=== PATIENT | female | born 1995 | race Caucasian/White ===

== ENCOUNTER 2019-05-02 21:46 | Outpatient (CLI) | payer BC ==
[2019-05-02 22:18] LABS: APPEARANCE,URINE CLEAR; BILIRUBIN,URINE NEGATIVE (NEGATIVE); COLOR,URINE YELLOW; GLUCOSE, URINE NEGATIVE (NEGATIVE); KETONES,URINE NEGATIVE (NEGATIVE); LEUKOCYTE ESTERASE,URINE NEGATIVE (NEGATIVE); NITRITE,URINE NEGATIVE (NEGATIVE); PROTEIN,URINE NEGATIVE (NEGATIVE); URINE SPECIFIC GRAVITY 1.024; UROBILINOGEN,URINE NEGATIVE mg/dL (<2.0)
[2019-05-02 22:40] LABS: URINE AMPHETAMINES SCREEN NEGATIVE; URINE BARBITURATES SCREEN NEGATIVE; URINE BENZODIAZEPINES SCREEN NEGATIVE; URINE COCAINE SCREEN NEGATIVE; URINE MARIJUANA (THC) SCREEN NEGATIVE; URINE METHADONE SCREEN NEGATIVE; URINE PHENCYCLIDINE SCREEN NEGATIVE
== END 2019-05-02 22:56 | disposition home or self-care (01) ==
LOC: LC 21:46
PROVIDERS: ATTEND Obstetrics & Gynecology Gynecology
PROC: 4A1HXCZ Monitoring of Products of Conception, Cardiac Rate, External Approach (ICD-10-PCS; principal; 2019-05-02)
DX: O36.8130 Decreased fetal movements, third trimester, not applicable or unspecified (principal); Z3A.30 30 weeks gestation of pregnancy
CPT/HCPCS: 80307; 81001

== ENCOUNTER 2019-06-24 21:57 | Outpatient (CLI) | payer BC ==
[2019-06-24 22:38] LABS: APPEARANCE,URINE SLIGHTLY-CLOUDY; BILIRUBIN,URINE NEGATIVE (NEGATIVE); COLOR,URINE AMBER; GLUCOSE, URINE NEGATIVE (NEGATIVE); KETONES,URINE 80 mg/dL (NEGATIVE); LEUKOCYTE ESTERASE,URINE SMALL (NEGATIVE); NITRITE,URINE NEGATIVE (NEGATIVE); PROTEIN,URINE 100 mg/dL (NEGATIVE); URINE SPECIFIC GRAVITY 1.028
[2019-06-24 22:58] LABS: URINE AMPHETAMINES SCREEN NEGATIVE; URINE BARBITURATES SCREEN NEGATIVE; URINE BENZODIAZEPINES SCREEN NEGATIVE; URINE COCAINE SCREEN NEGATIVE; URINE MARIJUANA (THC) SCREEN NEGATIVE; URINE METHADONE SCREEN NEGATIVE
[2019-06-24 23:07] LABS: URINE PHENCYCLIDINE SCREEN NEGATIVE
--- NOTE | 2019-06-25 00:24 | Non Stress Test Report ---
Non Stress Test Datetime Report Generated by CPN: 06/25/2019 00:24 DEMOGRAPHIC EGA NST: 38.0 INDICATION Indication for Study (NST) Other: gestational age >32 weeks. contractions VITAL SIGNS Temperature - NST: 98.0 Pulse - NST: 72 RESP - NST: 16 NBPSYS NST: 116 NBPDIA NST: 60 MONITORING Monitor Explained: Monitor Explained; Test Explained; Patient Verbalized Understanding Time on Monitor: 06/24/2019 22:11 Time off Monitor: 06/24/2019 23:50 NST Duration: 99 NST INTERVENTIONS NST Interventions: PO Hydration Physician Notified NST: Dr. Arenas BABY A: [id number] BABY A Movement : Present Contraction Frequency : irergular FHR Baseline : 125 Accelerations : 15X15 Decelerations : None Variability : Moderate 6-25bpm NST Review: Meets Criteria for Reactive NST NST Review and Verified By : GRISELDA Caldwell NST Results: Reactive NST REPORT Report Trigger: Send Report
== END 2019-06-25 00:16 | disposition home or self-care (01) ==
LOC: LC 21:57
PROVIDERS: ATTEND Obstetrics & Gynecology
PROC: 4A1HXCZ Monitoring of Products of Conception, Cardiac Rate, External Approach (ICD-10-PCS; principal; 2019-06-24)
DX: O99.283 Endocrine, nutritional and metabolic diseases complicating pregnancy, third trimester (principal); E86.0 Dehydration; Z3A.38 38 weeks gestation of pregnancy
CPT/HCPCS: 59025; 80307; 81005

== ENCOUNTER 2019-06-25 10:29 | Outpatient (CLI) | payer BC ==
[2019-06-25 11:08] LABS: APPEARANCE,URINE SLIGHTLY-CLOUDY; BILIRUBIN,URINE NEGATIVE (NEGATIVE); COLOR,URINE YELLOW; GLUCOSE, URINE NEGATIVE (NEGATIVE); KETONES,URINE 20 mg/dL (NEGATIVE); LEUKOCYTE ESTERASE,URINE TRACE (NEGATIVE); NITRITE,URINE NEGATIVE (NEGATIVE); PROTEIN,URINE 30 mg/dL (NEGATIVE); URINE SPECIFIC GRAVITY 1.011; UROBILINOGEN,URINE NEGATIVE mg/dL (<2.0)
[2019-06-25 11:24] LABS: URINE AMPHETAMINES SCREEN NEGATIVE; URINE BARBITURATES SCREEN NEGATIVE; URINE BENZODIAZEPINES SCREEN NEGATIVE; URINE COCAINE SCREEN NEGATIVE; URINE MARIJUANA (THC) SCREEN NEGATIVE; URINE METHADONE SCREEN NEGATIVE; URINE PHENCYCLIDINE SCREEN NEGATIVE
--- NOTE | 2019-06-25 11:28 | Non Stress Test Report ---
Non Stress Test Datetime Report Generated by CPN: 06/25/2019 11:28 DEMOGRAPHIC EGA NST: 38.1 INDICATION Indication for Study (NST) Other: labor check MONITORING Monitor Explained: Monitor Explained; Test Explained; Patient Verbalized Understanding Time on Monitor: 06/25/2019 10:45 Time off Monitor: 06/25/2019 11:20 NST Duration: 35 NST INTERVENTIONS NST Interventions: PO Hydration Physician Notified NST: A Benz CNM BABY A: [id number] BABY A Movement : Present Contraction Frequency : rare FHR Baseline : 125 Accelerations : 15X15 Decelerations : None Variability : Moderate 6-25bpm NST Review: Meets Criteria for Reactive NST NST Review and Verified By : Latonia Quinterosavayeyo RN NST Results: Reactive NST REPORT Report Trigger: Send Report
== END 2019-06-25 11:49 | disposition home or self-care (01) ==
LOC: LC 10:29
PROVIDERS: ATTEND Obstetrics & Gynecology
PROC: 4A1HXCZ Monitoring of Products of Conception, Cardiac Rate, External Approach (ICD-10-PCS; principal; 2019-06-25)
DX: O47.1 False labor at or after 37 completed weeks of gestation (principal); O99.283 Endocrine, nutritional and metabolic diseases complicating pregnancy, third trimester; E86.0 Dehydration; Z3A.38 38 weeks gestation of pregnancy
CPT/HCPCS: 59025; 80307; 81005; 84112

== ENCOUNTER 2019-06-27 15:37 | Inpatient (IN) | payer BC ==
[2019-06-27] MEDS ORDERED: RINGERS SOLUTION,LACTATED 1,000 ML IV PRN (17:47)
[2019-06-27] MEDS ORDERED: PENICILLIN G POTASSIUM 5,000,000 UNIT in DEXTROSE 5%-WATER 100 ML IV ONE (17:59)
[2019-06-27] MEDS ORDERED: LIDOCAINE 1% INJ-PF (10 MG/ML) 30 ML SDV ONE (18:06)
[2019-06-27] MEDS ORDERED: OXYTOCIN/NORMAL SALINE 20 UNIT/1,000 ML RTUINJ ONE (18:06)
[2019-06-27] MEDS ORDERED: MISOPROSTOL 0.2 MG TABLET ONE (18:06)
[2019-06-27] MEDS ORDERED: OXYTOCIN 10 UNIT/ML VIAL ONE (18:06)
[2019-06-27] MEDS ORDERED: PENICILLIN G-K 5 MILLION UNIT VIAL ONE ×2 (18:07→23:03)
[2019-06-27 18:29] LABS: ABSOLUTE BASOPHILS # (AUTO) 0.1 10^3/uL (0.0-0.2); ABSOLUTE EOSINOPHILS # (AUTO) 0.2 10^3/uL (0.0-0.6); ABSOLUTE LYMPHOCYTES (AUTO) 2.2 10^3/uL (0.5-4.7); ABSOLUTE MONOCYTES (AUTO) 0.9 10^3/uL (0.1-1.4); BASOPHILS % (AUTO) 0.5 % (0-2); EOSINOPHILS % (AUTO) 1.3 % (0-6); HEMATOCRIT 34.9 % (36.0-47.0); HEMOGLOBIN 11.6 g/dL (12.0-15.5); LYMPHOCYTES % (AUTO) 15.6 % (13-45); MEAN CORPUSCULAR HEMOGLOBIN 27.7 pg (27.0-33.4); MEAN CORPUSCULAR HGB CONC 33.1 g/dL (32.0-36.0); MEAN CORPUSCULAR VOLUME 84 fl (80-97); MONOCYTES % (AUTO) 6.2 % (3-13); PLATELET COUNT 416 10^3/uL (150-450); RED BLOOD COUNT 4.17 10^6/uL (3.72-5.28); RED CELL DISTRIBUTION WIDTH 13.9 % (11.5-14.0); SEGMENTED NEUTROPHILS % (AUTO) 76.4 % (42-78); TOTAL CELLS COUNTED % (AUTO) 100 %; WHITE BLOOD COUNT 14.4 10^3/uL (4.0-10.5)
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
[2019-06-27 20:35] LABS: APPEARANCE,URINE SLIGHTLY-CLOUDY; BILIRUBIN,URINE NEGATIVE (NEGATIVE); COLOR,URINE YELLOW; GLUCOSE, URINE NEGATIVE (NEGATIVE); KETONES,URINE 20 mg/dL (NEGATIVE); LEUKOCYTE ESTERASE,URINE TRACE (NEGATIVE); NITRITE,URINE NEGATIVE (NEGATIVE); PROTEIN,URINE 30 mg/dL (NEGATIVE); URINE SPECIFIC GRAVITY 1.023; UROBILINOGEN,URINE NEGATIVE mg/dL (<2.0)
[2019-06-27 20:57] LABS: URINE AMPHETAMINES SCREEN NEGATIVE; URINE BARBITURATES SCREEN NEGATIVE; URINE BENZODIAZEPINES SCREEN NEGATIVE; URINE COCAINE SCREEN NEGATIVE; URINE MARIJUANA (THC) SCREEN NEGATIVE; URINE METHADONE SCREEN NEGATIVE; URINE PHENCYCLIDINE SCREEN NEGATIVE
[2019-06-27] MEDS: PENICILLIN G POTASSIUM 2,500,000 UNIT in DEXTROSE 5%-WATER 50 ML IV SCH (23:05)
[2019-06-28] MEDS ORDERED: EPHEDRINE SULFATE INJ 50 MG/1 ML AMPULE ONE (02:54)
[2019-06-28] MEDS ORDERED: FENTANYL/BUPIVACAINE/NS/PF 300 MCG/150 ML RTUINJ EPI ONE (02:55)
[2019-06-28] MEDS ORDERED: BUPIVACAINE HCL 0.25 % INJ/PF (2.5 MG/1 ML) 30 ML VIAL ONE (02:55)
[2019-06-28] MEDS ORDERED: PENICILLIN G-K 5 MILLION UNIT VIAL ONE ×3 (04:07→12:04)
[2019-06-28] MEDS: PENICILLIN G POTASSIUM 2,500,000 UNIT in DEXTROSE 5%-WATER 50 ML IV SCH ×3 (04:10→14:02)
--- NOTE | 2019-06-28 08:30 | Warning Signs in Babies ---
VOD Warning Signs Datetime Report Generated by [facility]: 06/28/2019 08:30 VOD#608 -Warning Signs in Babies: Viewed with Parent(s)/Family (06/28/2019 08:29:John Rodriguez RN)
[2019-06-28] MEDS ORDERED: SERTRALINE HCL 50 MG TABLET PO SCH ×2 (10:00→22:00)
[2019-06-28] MEDS ORDERED: PANTOPRAZOLE SODIUM 20 MG TABLET.DR PO SCH (10:00)
[2019-06-28] MEDS ORDERED: DIBUCAINE 1% OINTMENT 28 GM TP PRN (13:13)
[2019-06-28] MEDS ORDERED: DIPH/PERTUSS(ACELL)/TETANUS VAC/PF 0.5 ML SYR (>=10YO) IM PRN (13:13)
[2019-06-28] MEDS ORDERED: BENZOCAINE/MENTHOL AEROSOL SPRAY 56 ML TOP PRN (13:13)
[2019-06-28] MEDS ORDERED: MEASLES,MUMPS&RUBELLA VACC/PF 0.5 ML VIAL SUBCUT PRN (13:13)
[2019-06-28] MEDS ORDERED: OXYTOCIN/NORMAL SALINE 20 UNIT/1,000 ML RTUINJ IV PRN (13:13)
[2019-06-28] MEDS ORDERED: ZOLPIDEM TARTRATE 5 MG TABLET PO PRN (13:13)
[2019-06-28] MEDS ORDERED: IBUPROFEN 800 MG TABLET ONE (13:33)
[2019-06-28] MEDS: IBUPROFEN 800 MG TABLET PO SCH ×2 (13:39→22:21)
--- NOTE | 2019-06-28 14:43 | Delivery Summary ---
Del Sum A-C Datetime Report Generated by CPN: 06/28/2019 14:42 DELIVERY PERSONNEL DELIVERY PERSONNEL: [id number] Delivery Doctor:: Latoya Waggoner CNM Labor and Delivery Nurse:: John Rodriguez RNtechnical marketing consultant Nurse:: HELENA Lloyd Nursery Nurse:: Jenna Bird RN Nursery Nurse:: Aniya Savage/HORTICULTURE WORKER: Aurora Swain, ST MATERNAL INFORMATION Delivery Anesthesia: Local Medications During Delivery: 1% lidocane Medications After Delivery: Pitocin Bolus-Please Comment Meds After Delivery Comment: Pitocin 20 units in 1000 NS Delivery QBL: 800 Delivery QBL Comment: 800 Maternal Complications: Premature Rupture of Membranes Provider Comments: SVDVF over intact perineum, delivered direct OA with shoulders directly OA, Lt shoulder delivered first. Partial Posterior nuchal cord unable to reduce, delivered through. Infant vigorous, to mothers abd. Cord clamped x2 cut per pt mother. Placenta partially with some bleeding, was delivered spontaneously via conrad. Mother and stable. LABOR SUMMARY EDC: 07/08/2019 00:00 No. Babies in Womb: 1 Attempted: No Labor Anesthesia: Epidural LABOR INFORMATION Reason for Induction: Premature Rupture of Membranes Onset of Labor: 06/28/2019 08:15 Complete Dilatation: 06/28/2019 12:07 Oxytocin: Induction Group B Beta Strep: negative Antibiotics # of Doses: 4 Antibiotics Time of Last Dose: 819 Name of Antibiotic Given: PCN Steroids Given: None Reason Steroids Not Administered: Not Applicable MEMBRANES Membranes Rupture Method: Spontaneous Rupture of Membranes: 06/27/2019 03:00 Length of Rupture (hr): 33.67 Amniotic Fluid Color: Clear Amniotic Fluid Amount: Small Amniotic Fluid Odor: Normal STAGES OF LABOR Stage 1 hr: 3 Stage 1 min: 52 Stage 2 hr: 0 Stage 2 min: 33 Stage 3 hr: 0 Stage 3 min: 14 Total Time in Labor hr: 4 Total Time in Labor min: 39 VAGINAL DELIVERY Episiotomy: None Laceration #1: Vaginal Laceration Extension #1: First Degree Other Laceration: 1* Rt labial laceration Laceration Repair: Yes Laceration Repair Note: repair with 3.0 chromic under epidural anesthesia Sponge Count Correct: Yes Sharps Count Correct: Yes CSECTION DELIVERY Primary Indication: N/A Secondary Indication: N/A CSection Incidence: N/A Labor: N/A Elective: N/A CSection Incision: N/A BABY A INFORMATION Delivery Date/Time: 06/28/2019 12:40 Method of Delivery: Vaginal Born in Route : No : N/A Forceps: N/A Vacuum Extraction: N/A Shoulder Dystocia : No PRESENTATION/POSITION BABY A Presentation: Cephalic Cephalic Presentation: Vertex Vertex Position: OA Breech Presentation: N/A PLACENTA INFORMATION BABY A Placenta Delivery Time : 06/28/2019 12:54 Placenta Method of Delivery: Spontaneous Placenta Status: Delivered SCORES BABY A Heart Rate 1 min: >100 bpm Resp Effort 1 min: Good Cry Reflex Irritability 1 min: Cough or Sneeze or Pulls Away Muscle Tone 1 min: Active Motion Color 1 min: Blue/Pale SCORE 1 MIN: 8 Heart Rate 5 min: >100 bpm Resp Effort 5 min: Good Cry Reflex Irritability 5 min: Cough or Sneeze or Pulls Away Muscle Tone 5 min: Active Motion Color 5 min: Body [place], Extremities Blue SCORE 5 MIN: 9 INFANT INFORMATION BABY A Gestational Age at Delivery: 38.4 Gestational Status: Early Term- 37- 38.6 Weeks Infant Outcome : Liveborn Condition : Stable Sex: Female IDENTIFICATION BABY A Verification Date/Time: 06/28/2019 13:18 ID Band Number: [id number] Mother's Name Verified: Yes Infant RN Verifying Infant: TMartin,RN Additional Verifying Personnel: DSprouse,US WEIGHT/LENGTH BABY A Infant Birthweight (gm): 3056 Weight (lb): 6 Weight (oz): 12 Infant Length (in): 23.00 Infant Length (cm): 58.42 CORD INFORMATION BABY A No. Cord Vessels: 3 Nuchal Cord : Around Neck x1, Loose Cord Blood Taken: Yes-For Eval (Mom's Blood Type - or O+) Infant Suction: Mouth ASSESSMENT BABY A Skin to Skin: Yes SIGNATURES Assignment: Nitza Arenas MD Signature: with User ID: [email or web address] : with User ID: [email or web address] : I was personally available for consultation and serving as supervising physician for the MLP.
[2019-06-28 16:09] LABS: ABSOLUTE LYMPHOCYTES (AUTO) 1.8 10^3/uL (0.5-4.7); ABSOLUTE MONOCYTES (AUTO) 1.3 10^3/uL (0.1-1.4); ABSOLUTE NEUT (AUTO) 15.7 10^3/uL (1.7-8.2); BASOPHILS % (AUTO) 0.3 % (0-2); EOSINOPHILS % (AUTO) 0.3 % (0-6); HEMATOCRIT 26.7 % (36.0-47.0); LYMPHOCYTES % (AUTO) 9.8 % (13-45); MEAN CORPUSCULAR HEMOGLOBIN 28.1 pg (27.0-33.4); MEAN CORPUSCULAR HGB CONC 33.9 g/dL (32.0-36.0); MEAN CORPUSCULAR VOLUME 83 fl (80-97); MONOCYTES % (AUTO) 6.7 % (3-13); PLATELET COUNT 353 10^3/uL (150-450); RED BLOOD COUNT 3.22 10^6/uL (3.72-5.28); RED CELL DISTRIBUTION WIDTH 13.8 % (11.5-14.0); SEGMENTED NEUTROPHILS % (AUTO) 82.9 % (42-78); TOTAL CELLS COUNTED % (AUTO) 100 %; WHITE BLOOD COUNT 18.9 10^3/uL (4.0-10.5)
[2019-06-28 16:14] LABS: HEMOGLOBIN 9.1 g/dL (12.0-15.5)
[2019-06-28] MEDS: DOCUSATE SODIUM 100 MG CAPSULE PO SCH (18:45)
[2019-06-28] MEDS: FERROUS SULFATE 325 MG TABLET PO SCH (18:45)
[2019-06-28] MEDS ORDERED: ACETAMINOPHEN WITH CODEINE #3 TABLET PO PRN (21:50)
[2019-06-29] MEDS: IBUPROFEN 800 MG TABLET PO SCH ×3 (06:30→22:31)
[2019-06-29] MEDS: ACETAMINOPHEN WITH CODEINE #3 TABLET PO PRN ×2 (06:37→15:08)
[2019-06-29 08:01] LABS: HEMATOCRIT 25.2 % (36.0-47.0); HEMOGLOBIN 8.4 g/dL (12.0-15.5); MEAN CORPUSCULAR HEMOGLOBIN 27.7 pg (27.0-33.4); MEAN CORPUSCULAR HGB CONC 33.4 g/dL (32.0-36.0); MEAN CORPUSCULAR VOLUME 83 fl (80-97); PLATELET COUNT 316 10^3/uL (150-450); RED BLOOD COUNT 3.04 10^6/uL (3.72-5.28); RED CELL DISTRIBUTION WIDTH 13.6 % (11.5-14.0)
[2019-06-29] MEDS ORDERED: INFLUENZA QUAD (6MOS+) 2019-20 VAC 0.5 ML SYR IM ONE (10:26)
[2019-06-29] MEDS: FERROUS SULFATE 325 MG TABLET PO SCH ×2 (10:27→17:34)
[2019-06-29] MEDS: DOCUSATE SODIUM 100 MG CAPSULE PO SCH ×2 (10:27→17:34)
[2019-06-29] MEDS: SENNOSIDES/DOCUSATE 8.6-50 MG 1 EACH TABLET PO SCH (10:27)
[2019-06-29] MEDS: SERTRALINE HCL 50 MG TABLET PO SCH (10:27)
[2019-06-29] MEDS: PRENATAL VITAMIN W DHA CAPSULE PO SCH (10:27)
--- NOTE | 2019-06-29 10:48 | PDOC PROGRESS REPORT ---
Subjective-OB Progress Note for:: 06/29/19 Subjective: Pt doing well, no concerns. She reports light bleeding, regular diet and voiding without difficulty. Physical Exam (OB) Vital Signs: Temp Pulse Resp BP Pulse Ox 97.3 F 64 14 102/59 L 100 06/29/19 08:11 06/29/19 08:11 06/29/19 08:11 06/29/19 08:11 06/29/19 08:11 Intake & Output 06/28/19 06/29/19 06/30/19 06:59 06:59 06:59 Weight 63.3 kg - PIH/Pre-Eclampsia Headache: Absent Epigastric Pain: No Visual Changes: No - Lochia Lochia Amount: Scant < 10 ml Lochia Color: Rubra/Red - Abdomen Description: Soft Hernia Present: No Fundal Description: Firm, Midline Fundal Height: u/u - u/2 Objective-Diagnostic Laboratory: 06/29/19 07:25 06/28/19 06/29/19 15:50 07:25 WBC 18.9 H 16.0 H RBC 3.22 L 3.04 L Hgb 9.1 L D 8.4 L Hct 26.7 L 25.2 L MCV 83 83 MCH 28.1 27.7 MCHC 33.9 33.4 RDW 13.8 13.6 Plt Count 353 316 Seg Neutrophils % 82.9 H Assessment and Plan(PN) - Assessment and Plan (1) Anemia due to acute blood loss Is this a current diagnosis for this admission?: Yes (2) Laceration, obstetrical, first degree Is this a current diagnosis for this admission?: Yes (3) hemorrhage Qualifiers: hemorrhage type: third-stage Qualified Code(s): O72.0 - Third- stage hemorrhage Is this a current diagnosis for this admission?: Yes (4) Prolonged rupture of membranes, greater than 24 hours, delivered Is this a current diagnosis for this admission?: Yes (5) (spontaneous vaginal delivery) Is this a current diagnosis for this admission?: Yes - Time Spent with Patient Time with patient: Less than 15 minutes Medications reviewed and adjusted accordingly: Yes - Disposition Anticipated Discharge: Home Within: within 24 hours
[2019-06-30] MEDS: IBUPROFEN 800 MG TABLET PO SCH (06:04)
[2019-06-30] MEDS: ACETAMINOPHEN WITH CODEINE #3 TABLET PO PRN (06:06)
[2019-06-30 08:04] VITALS: BP 105/77
[2019-06-30] MEDS: FERROUS SULFATE 325 MG TABLET PO SCH (09:28)
[2019-06-30] MEDS: DOCUSATE SODIUM 100 MG CAPSULE PO SCH (09:28)
[2019-06-30] MEDS: SENNOSIDES/DOCUSATE 8.6-50 MG 1 EACH TABLET PO SCH (09:28)
[2019-06-30] MEDS: PRENATAL VITAMIN W DHA CAPSULE PO SCH (09:28)
[2019-06-30] MEDS: SERTRALINE HCL 50 MG TABLET PO SCH (09:28)
--- NOTE | 2019-06-30 10:35 | PDOC DISCHARGE SUMMARY ---
Impression - Admit/DC Date/PCP Admission Date/Primary Care Provider: 06/27/19 17:45 VIDA NAVAS MD Discharge Date: 06/30/19 - Discharge Diagnosis (1) Anemia due to acute blood loss Is this a current diagnosis for this admission?: Yes (2) Laceration, obstetrical, first degree Is this a current diagnosis for this admission?: Yes (3) hemorrhage Is this a current diagnosis for this admission?: Yes (4) Prolonged rupture of membranes, greater than 24 hours, delivered Is this a current diagnosis for this admission?: Yes (5) (spontaneous vaginal delivery) Is this a current diagnosis for this admission?: Yes - Additional Information Resuscitation Status: Full Code Discharge Diet: Regular Discharge Activity: Balance Activity w/Rest, Pelvic Rest Referrals: VIDA NAVAS MD [Primary Care Provider] - Prescriptions: Ibuprofen [Motrin 800 mg Tablet] 800 mg PO Q8HP PRN #60 tablet PRN Reason: Home Medications: Prenat 115/Iron Fum/Folic/Dss [ 19 Tablet] 1 tab PO DAILY 05/02/19 Pantoprazole Sodium [Protonix] 20 mg PO DAILY 06/24/19 Sertraline HCl [Zoloft 50 mg Tablet] 50 mg PO DAILY 06/24/19 Ibuprofen [Motrin 800 mg Tablet] 800 mg PO Q8HP PRN #60 tablet 06/30/19 Results Laboratory Results: WBC 16.0 10^3/uL (4.0-10.5) H 06/29/19 07:25 RBC 3.04 10^6/uL (3.72-5.28) L 06/29/19 07:25 Hgb 8.4 g/dL (12.0-15.5) L 06/29/19 07:25 Hct 25.2 % (36.0-47.0) L 06/29/19 07:25 MCV 83 fl (80-97) 06/29/19 07:25 MCH 27.7 pg (27.0-33.4) 06/29/19 07:25 MCHC 33.4 g/dL (32.0-36.0) 06/29/19 07:25 RDW 13.6 % (11.5-14.0) 06/29/19 07:25 Plt Count 316 10^3/uL (150-450) 06/29/19 07:25 Lymph % (Auto) 9.8 % (13-45) L 06/28/19 15:50 [place] % (Auto) 6.7 % (3-13) 06/28/19 15:50 Eos % (Auto) 0.3 % (0-6) 06/28/19 15:50 Baso % (Auto) 0.3 % (0-2) 06/28/19 15:50 Absolute Neuts (auto) 15.7 10^3/uL (1.7-8.2) H 06/28/19 15:50 Absolute Lymphs (auto) 1.8 10^3/uL (0.5-4.7) 06/28/19 15:50 Absolute Monos (auto) 1.3 10^3/uL (0.1-1.4) 06/28/19 15:50 Absolute Eos (auto) 0.0 10^3/uL (0.0-0.6) 06/28/19 15:50 Absolute Basos (auto) 0.0 10^3/uL (0.0-0.2) 06/28/19 15:50 Seg Neutrophils % 82.9 % (42-78) H 06/28/19 15:50 Urine Color YELLOW 06/27/19 20:02 Urine Appearance SLIGHTLY-CLOUDY 06/27/19 20:02 Urine pH 5.0 (5.0-9.0) 06/27/19 20:02 Ur Specific [place] 1.023 06/27/19 20:02 Urine Protein 30 mg/dL (NEGATIVE) H 06/27/19 20:02 Urine Glucose (UA) NEGATIVE mg/dL (NEGATIVE) 06/27/19 20:02 Urine Ketones 20 mg/dL (NEGATIVE) H 06/27/19 20:02 Urine Blood MODERATE (NEGATIVE) H 06/27/19 20:02 Urine Nitrite NEGATIVE (NEGATIVE) 06/27/19 20:02 Urine Bilirubin NEGATIVE (NEGATIVE) 06/27/19 20:02 Urine Urobilinogen NEGATIVE mg/dL (<2.0) 06/27/19 20:02 Ur Leukocyte Esterase TRACE (NEGATIVE) H 06/27/19 20:02 Urine Ascorbic Acid NEGATIVE (NEGATIVE) 06/27/19 20:02 Membranes Rupture POSITIVE (NEGATIVE) H 06/27/19 17:00 Urine Opiates Screen NEGATIVE 06/27/19 20:02 Urine Methadone Screen NEGATIVE 06/27/19 20:02 Ur Barbiturates Screen NEGATIVE 06/27/19 20:02 Ur Phencyclidine Scrn NEGATIVE 06/27/19 20:02 Ur Amphetamines Screen NEGATIVE 06/27/19 20:02 U Benzodiazepines Scrn NEGATIVE 06/27/19 20:02 Urine Cocaine Screen NEGATIVE 06/27/19 20:02 U Marijuana (THC) Screen NEGATIVE 06/27/19 20:02 RPR NONREACTIVE (NONREACTIVE) 06/27/19 18:20 Blood Type O POSITIVE 06/27/19 18:20 Antibody Screen NEGATIVE 06/27/19 18:20
== END 2019-06-30 12:45 | disposition home or self-care (01) | DRG 806 ==
LOC: LC 15:37 → LR 17:45 → 2S 06-28 14:59
PROVIDERS: ADMIT Obstetrics & Gynecology; ATTEND Obstetrics & Gynecology
PROC: 10E0XZZ Delivery of Products of Conception, External Approach (ICD-10-PCS; principal; 2019-06-28)
PROC: 0HQ9XZZ Repair Perineum Skin, External Approach (ICD-10-PCS; 2019-06-28)
DX: O42.12 Full-term premature rupture of membranes, onset of labor more than 24 hours following rupture (principal); O72.1 Other immediate postpartum hemorrhage; Z37.0 Single live birth; D62 Acute posthemorrhagic anemia; Z3A.38 38 weeks gestation of pregnancy; O70.0 First degree perineal laceration during delivery; O69.81X0 Labor and delivery complicated by cord around neck, without compression, not applicable or unspecified; Z23 Encounter for immunization; O99.344 Other mental disorders complicating childbirth; F31.9 Bipolar disorder, unspecified; F41.9 Anxiety disorder, unspecified; Z20.828 Contact with and (suspected) exposure to other viral communicable diseases; O99.02 Anemia complicating childbirth
CPT/HCPCS: 36415; 80307; 81005; 84112; 85025; 85027; 86592; 86850; 86900; 86901; 90686; 94760; J2540; J2590; J3010; J3490

== ENCOUNTER → 2020-01-20 | Outpatient (CLI) | payer MEDICAID | LOC: OD 13:00 | PROVIDERS: ATTEND Obstetrics & Gynecology | DX: O26.851 Spotting complicating pregnancy, first trimester (principal) | CPT/HCPCS: 36415; 84702 ==

== ENCOUNTER 2020-01-21 12:42 | Emergency (ER) | payer MEDICAID ==
--- NOTE | 2020-01-21 13:07 | ER Document Report ---
ED Medical Screen (RME) - General Chief Complaint: Vaginal Bleeding Stated Complaint: VAGINAL BLEEDING /CRAMPING Time Seen by Provider: 01/21/20 12:56 Primary Care Provider: SARAH ARENAS MD [Primary Care Provider] - Follow up as needed TRAVEL OUTSIDE OF THE [place] IN LAST 30 DAYS: No - HPI Notes: 01/21/20 13:09 24-year-old female 2 para 1 who is approximately 6 or 7 weeks presents emergency room for vaginal bleeding that started yesterday with spotting, states today she has been having vaginal bleeding with large clots. Patient was seen by a Dr. Arenas, FLOOR SCRAPER who stated that she is likely miscarrying. States she had blood work and an ultrasound at the time they did not see a gestational sac. Patient is concerned because she started bleeding more today. Denies any fevers chills, nausea vomiting diarrhea. Does report some suprapubic cramping with vaginal bleeding. I have greeted and performed a rapid initial assessment of this patient. A comp rehensive ED assessment and evaluation of the patient, analysis of test results and completion of the medical decision making process will be conducted by additional ED providers. PHYSICAL EXAMINATION: CV: s1, s2 regular LUNGS: No respiratory distress - Related Data Allergies/Adverse Reactions: No Known Allergies Allergy (Verified 01/21/20 12:59) Doctor's Discharge - Discharge Referrals: SARAH ARENAS MD [Primary Care Provider] - Follow up as needed
[2020-01-21 13:47] LABS: ABSOLUTE BASOPHILS # (AUTO) 0.1 10^3/uL (0.0-0.2); ABSOLUTE EOSINOPHILS # (AUTO) 0.3 10^3/uL (0.0-0.6); ABSOLUTE LYMPHOCYTES (AUTO) 2.5 10^3/uL (0.5-4.7); ABSOLUTE MONOCYTES (AUTO) 0.8 10^3/uL (0.1-1.4); ABSOLUTE NEUT (AUTO) 7.9 10^3/uL (1.7-8.2); BASOPHILS % (AUTO) 0.5 % (0-2); EOSINOPHILS % (AUTO) 2.2 % (0-6); HEMATOCRIT 41.7 % (36.0-47.0); HEMOGLOBIN 13.9 g/dL (12.0-15.5); LYMPHOCYTES % (AUTO) 21.6 % (13-45); MEAN CORPUSCULAR HEMOGLOBIN 29.4 pg (27.0-33.4); MEAN CORPUSCULAR HGB CONC 33.3 g/dL (32.0-36.0); MEAN CORPUSCULAR VOLUME 88 fl (80-97); MONOCYTES % (AUTO) 6.8 % (3-13); PLATELET COUNT 398 10^3/uL (150-450); RED BLOOD COUNT 4.73 10^6/uL (3.72-5.28); RED CELL DISTRIBUTION WIDTH 14.3 % (11.5-14.0); SEGMENTED NEUTROPHILS % (AUTO) 68.9 % (42-78); TOTAL CELLS COUNTED % (AUTO) 100 %; WHITE BLOOD COUNT 11.5 10^3/uL (4.0-10.5)
[2020-01-21 14:06] LABS: ALBUMIN 4.4 g/dL (3.5-5.0); ALKALINE PHOSPHATASE 78 U/L (38-126); ANION GAP 9 (5-19); ASPARTATE AMINO TRANSFERASE 22 U/L (14-36); BILIRUBIN,TOTAL 0.2 mg/dL (0.2-1.3); BLOOD UREA NITROGEN 10 mg/dL (7-20); CALCIUM 9.7 mg/dL (8.4-10.2); CARBON DIOXIDE 27 mmol/L (22-30); CHLORIDE 102 mmol/L (98-107); GLUCOSE 86 mg/dL (75-110); POTASSIUM 4.4 mmol/L (3.6-5.0); TOTAL PROTEIN 7.3 g/dL (6.3-8.2)
[2020-01-21 14:11] LABS: APPEARANCE,URINE CLEAR; BILIRUBIN,URINE NEGATIVE (NEGATIVE); COLOR,URINE YELLOW; GLUCOSE, URINE NEGATIVE (NEGATIVE); KETONES,URINE NEGATIVE (NEGATIVE); LEUKOCYTE ESTERASE,URINE NEGATIVE (NEGATIVE); NITRITE,URINE NEGATIVE (NEGATIVE); PROTEIN,URINE NEGATIVE (NEGATIVE); URINE SPECIFIC GRAVITY 1.018; UROBILINOGEN,URINE NEGATIVE mg/dL (<2.0)
--- NOTE | 2020-01-21 14:29 | RADIOLOGY REPORT (SQ) ---
EXAM DESCRIPTION: U/S OB TRANSVAG W/DOPPLER IMAGES COMPLETED DATE/TIME: 01/21/2020 2:09 pm REASON FOR STUDY: vag bleeding x 1 day, preg, approx 6-7w COMPARISON: None. TECHNIQUE: Endovaginal static and realtime grayscale images acquired of the pelvis. Additional selec jeffrey spectral and color Doppler images recorded. All images stored on PACs. CLINICAL AGE: Patient states she is 7 weeks BHCG: Pending quantitative HCG LIMITATIONS: None. FINDINGS: UTERUS: No visualized intrauterine . Uterus 9.4 x 5 x 4.8 cm size. Hypoechoic 2 cm, 1.4 cm fibroids RIGHT ADNEXA: Right ovary 2.9 x 1.9 x 1 point cm in size. 14 mm hemorrhagic cyst, could represent th e corpus luteum. Normal color flow and arterial Doppler. No adnexal free fluid.No adnexal masses. LEFT ADNEXA: Normal ovary with normal vascular flow. Left ovary 3 x 2.2 x 1.3 cm. No adnexal free f luid.No adnexal masses. FREE FLUID: None. OTHER: No other significant finding. IMPRESSION: NO VISUALIZED INTRA- OR EXTRAUTERINE . bHCG LEVEL NOT AVAILABLE FOR CORRELATION WITH US FINDINGS. ECTOPIC CANNOT BE EXCLUDED. FOLLOW-UP ULTRASOUND AND SERIAL BHCG LEVELS STRONGLY RECOMMENDED TO ACCURATELY ASSESS STATU S. TECHNICAL DOCUMENTATION: JOB ID: [id number] [employer]- All Rights Reserved Reading location - IP/workstation name: [id number]
--- NOTE | 2020-01-21 16:39 | ER Document Report ---
ED GI/ - General Chief Complaint: Vaginal Bleeding Stated Complaint: VAGINAL BLEEDING /CRAMPING Time Seen by Provider: 01/21/20 12:56 Primary Care Provider: SARAH SENIOR MD [ACTIVE PROVISIONAL STAFF] - Follow up in 1 week Notes: Patient is a 25-year-old female G2, P1 who presents emergency department with a chief complaint of vaginal bleeding that started yesterday. She had some spotting yesterday and today ended up having some large clots. She was seen by her FUR IRONER yesterday and had labs drawn. Since then, she has had large clots. LMP: 6-7 weeks ago per patient. TRAVEL OUTSIDE OF THE [place] IN LAST 30 DAYS: No - Related Data Allergies/Adverse Reactions: No Known Allergies Allergy (Verified 01/21/20 12:59) Past Medical History - Social History Smoking Status: Unknown if Ever Smoked Family History: Reviewed & Not Pertinent Review of Systems - Review of Systems Notes: REVIEW OF SYSTEMS: CONSTITUTIONAL : Denies recent illness. Denies recent unintentional weight l oss. Denies fever, chills, or sweats. EENT: Denies eye, ear, throat, or mouth pain, discharge, or symptoms. Denies nasal or sinus congestion. CARDIOVASCULAR: Denies chest pain. RESPIRATORY: Denies shortness of breath, cough, congestion, difficulty breathing, or wheezing. GASTROINTESTINAL: Denies nausea, vomiting, and diarrhea. Denies constipation. See HPI. GENITOURINARY: Denies difficulty urinating, burning, blood in urine, urgency or frequency. FEMALE GENITOURINARY: See HPI. MUSCULOSKELETAL: Denies neck and back pain. Denies joint pain or swelling. SKIN: Denies rash, itchiness, or lesions HEMATOLOGIC : Denies easy bruising or bleeding. LYMPHATIC: Denies swollen, painful, enlarged glands. NEUROLOGICAL: Denies no numbness or tingling denies weakness. Denies headache. Denies altered mental status. Denies alteration in speech. PSYCHIATRIC: Denies stress, anxiety, alteration in sleep patterns, or depression. All other systems reviewed and negative. Physical Exam - Vital signs Vitals: Temp Pulse Resp BP Pulse Ox 98.6 F 98 18 131/83 H 100 01/21/20 13:00 01/21/20 13:00 01/21/20 13:00 01/21/20 13:00 01/21/20 13:00 - Notes Notes: PHYSICAL EXAMINATION: GENERAL: Appears well, healthy, well-nourished, no acute distress. HEAD: Normocephalic, atraumatic. EYES: PERRL, conjunctiva normal, all extraocular movements intact, sclera no nicteric ENT: Moist mucous membranes. NECK: Supple, no noticeable swelling, redness, rash. Normal range of motion. LUNGS: Equal breath sounds bilaterally and clear to auscultation. No wheezes r ales or rhonchi. CARDIOVASCULAR: S1-S2, regular rate, regular rhythm. Radial pulses 2+, normal. ABDOMEN: Normoactive bowel sounds. Soft, tender mid lower abdomen, no guarding, no rebound tenderness, and no masses palpated. EXTREMITIES: Normal strength and range of motion, no pitting or edema. No cyanosis. NEUROLOGICAL: Moves all extremities upon command. Strength 5/5 in all extremities. PSYCH: Normal mood, normal affect. SKIN: Warm, dry. No rash, lesions, ulcerations noted. Normal skin turgor. Course - Re-evaluation Re-evalutation: 01/22/20 08:57 Otology has a nonspecific leukocytosis of 11,500. hCG is 595, which has decreased from yesterday. Yesterday her hCG was 1148 from her outpatient labs. Urinalysis shows a moderate amount of blood, consistent with her vaginal bleeding. Transvaginal ultrasound shows that the patient miscarried. I have a low suspicion for retained products. Exam shows a slightly tender mid lower abdomen, consistent with her miscarriage. We will give the patient Tylenol 3 to help with pain. She will follow-up with her FUR IRONER for control, as she was on control and ended up getting . Follow-up precautions were given. Verbal discharge instructions were given to the patient. They verbalized understanding. They are stable for discharge. - Vital Signs Vital signs: Temp Pulse Resp BP Pulse Ox 98 F 73 16 115/72 98 01/21/20 16:44 01/21/20 16:44 01/21/20 16:44 01/21/20 16:44 01/21/20 16:44 - Laboratory Result Diagrams: 01/21/20 13:13 01/21/20 13:13 Laboratory results interpreted by me: 01/21/20 01/21/20 01/21/20 13:13 13:13 13:13 WBC 11.5 H RDW 14.3 H Beta HCG, Quant 595.05 H Urine Blood MODERATE H Discharge - Discharge Clinical Impression: Miscarriage Condition: Stable Disposition: HOME, SELF-CARE Additional Instructions: You were seen today in the emergency department for vaginal bleeding. You had a miscarriage. Expect to have some bleeding from the next couple weeks. Follow- up with your FUR IRONER for control management. Use Tylenol #3 for extreme pain. Do not operate heavy machinery or drive while using medication. Prescriptions: Acetaminophen with Codeine [Tylenol #3 Tablet] 1 each PO Q6HP PRN #10 tablet PRN Reason: Forms: Return to Work Referrals: SARAH SENIOR MD [ACTIVE PROVISIONAL STAFF] - Follow up in 1 week
[2020-01-21 16:48] VITALS: BP 115/72
== END 2020-01-21 16:48 | disposition home or self-care (01) ==
LOC: ER 12:42
DX: O03.9 Complete or unspecified spontaneous abortion without complication (principal); D72.829 Elevated white blood cell count, unspecified
CPT/HCPCS: 36415; 76817; 80053; 81001; 84702; 85025; 86900; 86901; 93976; 99284